=== PATIENT | male | born 1985 | race Caucasian/White ===

== ENCOUNTER → 2021-10-27 | Day surgery (SDC) | payer OTHER ==
[~2021-10-27] MED LIST: Bupivacaine 0.5%/EPINEPHrine 1:200,000 50 ML MDV ONE; Dexamethasone 4 MG/ML 5 ML MDV ONE; HYDROmorphone 0.5 MG/0.5 ML Syringe IVPUSH PRN; HYDROmorphone 0.5 MG/0.5 ML Syringe ONE; Ketorolac 30 MG/ML SDV ONE; Lactated Ringers 1,000 ML ONE; Lidocaine 1% 5 ML VIAL ONE; Lidocaine 1% with EPINEPHrine 1:100,000 20 ML MDV ONE; Midazolam 1 MG/ML 2 ML SDV ONE; Neostigmine Methylsulfate 10 MG/10 ML MDV ONE; Ondansetron 4 MG/2 ML SDV IVPUSH PRN; Ondansetron 4 MG/2 ML SDV ONE; Piperacillin/Tazobactam 4.5 GM in Sodium Chloride 0.9% 100 ML IV ONE; Propofol 200 MG/20 ML SDV ONE; Rocuronium 50 MG/5 ML Vial ONE; fentaNYL 250 MCG/5 ML SDV ONE
[2021-10-27] MEDS: fentaNYL 100 MCG/2 ML SDV IVPUSH PRN ×2 (15:43→16:40)
== END | disposition home or self-care (01) ==
LOC: JD.ED 12:46 → JD.SDS 13:34
PROVIDERS: ATTEND Surgery
DX: K35.30 Acute appendicitis with localized peritonitis, without perforation or gangrene (principal); K38.8 Other specified diseases of appendix; K21.9 Gastro-esophageal reflux disease without esophagitis; Z79.899 Other long term (current) drug therapy
CPT/HCPCS: 44970; J1100; J1170; J1885; J2250; J2405; J2704; J2710; J3010; J3490; J7120; 00840; 99140